=== PATIENT | female | born 1965 | race Caucasian/White ===

== ENCOUNTER → 2021-01-05 | Outpatient (CLI) | payer BC, OTHER | LOC: RAD 07:42 | PROVIDERS: ATTEND Internal Medicine | DX: J84.10 Pulmonary fibrosis, unspecified (principal) ==

== ENCOUNTER → 2021-01-08 | Outpatient (CLI) | payer BC, OTHER | END | disposition home or self-care (01) | LOC: CAT 11:56 → RAD 13:04 | PROVIDERS: ATTEND Internal Medicine | DX: R06.02 Shortness of breath (principal); J84.10 Pulmonary fibrosis, unspecified; J98.6 Disorders of diaphragm; N63.12 Unspecified lump in the right breast, upper inner quadrant; R91.1 Solitary pulmonary nodule; M25.78 Osteophyte, vertebrae; Z87.891 Personal history of nicotine dependence; Z98.890 Other specified postprocedural states; Z79.899 Other long term (current) drug therapy ==

== ENCOUNTER → 2021-02-04 | Outpatient (CLI) | payer BC, OTHER | LOC: LAB 13:27 | PROVIDERS: ATTEND Internal Medicine | DX: Z01.812 Encounter for preprocedural laboratory examination (principal); Z20.822 Contact with and (suspected) exposure to COVID-19 ==

== ENCOUNTER → 2021-02-09 | Outpatient (CLI) | payer BC, OTHER ==
--- NOTE | ~2021-02-09 | PFR/MVV ---
[facility] [place] [address] PULMONARY FUNCTION MVV/REPORT Name: GUPTAURIELKERI JIMENEZ Room #: [facility].#: [id number] Admission: 02/09/21 Attend Phys: Martin Hardy MD Discharge: Date of : 65 Report #: [id number] THIS REPORT FOR: //name// >> SPIROMETRY: (BTPS) Height: 63 in cm Weight: 145 lbs kg Exam Date: 02/09/21 PRE-RX POST-RX PRED BEST %PRED BEST %PRED %CHG FVC LITERS . 3.07 . 2.65 . 86 . 2.70 . 88 . 2 FEV1 LITERS . 2.30 . 1.67 . 73 . 1.78 . 77 . 6 FEV1/FVC % . 74 . 63 . 85 . 66 . 88 . 4 MXC95-54% L/Sec . 2.68 . 0.74 . 28 . 0.96 . 36 . 29 PEF L/SEC . 5.73 . 4.79 . 84 . 5.15 . 90 . 7 FEF50/FIF50 UNITLESS . <1.00 . 0.52 . . 0.47 . . MVV L/Min . 96 . 44 . 46 f 1/Min . . 145 . >> LUNG VOLUMES: (BTPS) PRE-RX POST-RX PRED AVG %PRED AVG %PRED %CHG VC Liters . 3.07 . 3.00 . 98 . . . TLC Liters . 4.73 . 4.56 . 96 . . . RV Liters . 1.72 . 1.55 . 90 . . . RV/TLC % . 36 . 34 . 94 . . . FRC PL Liters . 2.65 . 2.18 . 82 . . . FRC N2 Liters . 2.65 . . . . . ERV Liters . 1.02 . 0.63 . 62 . . . IC Liters . 2.03 . 2.10 . 103 . . . >> DIFFUSION: DLCO ml/Min/mmHg . 20.2 . 10.7 . 53 . . . DL Loki ml/Min/mmHg . 20.2 . 10.7 . 53 . . . DLCO/VA ml/Min/mmHg . 3.87 . 3.04 . 79 . . . VA Liters . . 3.51 . . . . COMMENTS: COMMENTS: >> RESISTANCE: [facility] [address] [place] [address] PULMONARY FUNCTION MVV/REPORT Name: URIEL GUPTA Room #: [facility].#: [id number] Admission: 02/09/21 Attend Phys: Martin Hardy MD Discharge: Date of : 65 Report #: [id number] PRE-RX PRED AVG %PRED Raw Total cmH20/L/Sec . . 5.00 . Raw Insp cmH20/L/Sec . . 2.39 . Raw Exp cmH20/L/Sec . . 2.89 . Raw cmH20/L/Sec . 1.45 . 3.02 . 209 Gaw L/Sec/cmH20 . 0.635 . 0.331 . 52 sRaw cmH20 Sec . 3.84 . 10.01 . 260 sGaw l/cmH20 Sec . 0.260 . 0.100 . 38 Vtq Liters . . 3.31 . # = OUTSIDE 95% CONFIDENCE INTERVAL CALIBRATION: PRED: 3.00 ACTUAL: EXP 3.01 INSP 3.02 [facility]OL10-06 [facility] N-[facility]04-4 >> INTERPRETATION/IMPRESSION: Spirometric examination revealed mild airflow obstruction. There was no significant bronchodilator response. There was moderate bronchodilator improvement in the FEF 25-75 range. Lung volumes are normal. Diffusion capacity is moderately reduced, but normal when corrected for alveolar volume. Flow volume loop is consistent with airflow obstruction. IMPRESSION: Mild obstructive ventilatory defect, small airways disease is suggested, diffusion capacity is decreased. By: Kai Lynch MD /nt
== END ==
LOC: PUL 09:39
PROVIDERS: ATTEND Internal Medicine
DX: J98.4 Other disorders of lung (principal)